=== PATIENT | female | born 1980 | race Caucasian/White ===

== ENCOUNTER 2017-10-19 14:30 | Outpatient (RCR) | payer BC | END 2017-12-27 | disposition home or self-care (01) | LOC: MKS.ESL.PT | DX: N39.46 Mixed incontinence (principal) ==

== ENCOUNTER 2020-08-07 15:08 | Emergency (ER) | payer BC ==
[~2020-08-07] VITALS: Ht 165.1 cm; Wt 86.4 kg
[2020-08-07 15:27] LABS: BASO % 0.2 % (0.0-2.0); EOS % 0.2 % (0-4.0); GRAN # 11.6 (1.4-6.5); GRAN % 86.6 % (42.2-75.2); HEMATOCRIT 39.7 % (37.0-47.0); HEMOGLOBIN 13.3 g/dl (12.5-16.0); LYMPH # 1.1 (1.2-3.4); LYMPH % 8.4 % (20.0-51.0); MEAN CELL VOLUME 85 fl (80.0-100.0); MEAN CORPUSCULAR HEMOGLOBIN 28 pg (27.0-31.0); MEAN CORPUSCULAR HGB CONC 34 g/dl (33.0-37.0); MEAN PLATELET VOLUME 10.1 fl (7.4-10.4); MONO # 0.6 (0.1-0.6); MONO % 4.1 % (1.7-9.3); PLATELET COUNT 276 K/mm3 (130-400); RED BLOOD COUNT 4.69 M/mm3 (4.10-5.30); REDCELL DISTRIBUTION WIDTH-CV 13.2 % (11.5-14.5)
[2020-08-07 15:33] LABS: ALANINE AMINOTRANSFERASE 20 U/L (4-34); ALBUMIN 4.2 gm/dL (3.5-5.0); ALCOHOL(ethanol),MEDICAL < 10 mg/dL; ALKALINE PHOSPHATASE 54 U/L (50-136); ANION GAP 8 mmol/L (7-16); AST,SGOT 23 U/L (15-37); BILIRUBIN,TOTAL 0.5 mg/dL (0.0-1.0); BLOOD UREA NITROGEN 12 mg/dL (7-17); CALCIUM 9.1 mg/dL (8.4-10.2); CARBON DIOXIDE 21 mmol/L (22-30); CHLORIDE 108 mmol/L (98-107); CREATININE, serum 0.98 (0.52-1.25); GLUCOSE 171 mg/dL (74-106); POTASSIUM 3.8 mmol/L (3.4-5.0); SODIUM 137 mmol/L (137-145); TOTAL PROTEIN 7.6 gm/dL (6.4-8.2)
[2020-08-07 15:35] LABS: CREATINE KINASE 65 U/L (30-135)
[2020-08-07 15:45] LABS: TROPONIN-I < 0.012 ng/mL (0.000-0.035)
[2020-08-07 16:18] LABS: ARTERIAL BLD GAS O2 SATURATION 95.3 % (92-100); ARTERIAL BLD GAS TCO2 CT 23.2; ARTERIAL BLOOD GAS BASE EXCESS -1.9 (-2-2); ARTERIAL BLOOD GAS HCO3 22.1 meq/L (22-26); ARTERIAL BLOOD GAS PCO2 35.3 mmHg (35-45); ARTERIAL BLOOD GAS PO2 74.2 mmHg (80-100); ARTERIAL BLOOD GAS pH 7.42 (7.35-7.45)
[2020-08-07 19:05] VITALS: BP 115/66; PULSE 71; TEMP 98.5
== END 2020-08-07 20:13 | disposition short-term general hospital (02) ==
LOC: COL.ER 15:08
PROVIDERS: Nurse Practitioner Family
DX: S00.03XA Contusion of scalp, initial encounter (principal); S90.412A Abrasion, left great toe, initial encounter; M25.561 Pain in right knee; R55 Syncope and collapse; R00.1 Bradycardia, unspecified; R11.2 Nausea with vomiting, unspecified; R40.2410 Glasgow coma scale score 13-15, unspecified time; W10.9XXA Fall (on) (from) unspecified stairs and steps, initial encounter
CPT/HCPCS: J2405; J7030